=== PATIENT | female | born 1995 | race American Indian/Alaskan Native ===

== ENCOUNTER 2016-05-30 21:51 | Outpatient (CLI) | payer MEDICAID ==
[2016-05-30] MEDS ORDERED: LACTATED RINGERS 1,000 ML IV ONE (21:57)
[2016-05-30 22:20] VITALS: BP 113/59
== END 2016-05-31 00:56 | disposition home or self-care (01) ==
LOC: TRG 21:51
PROVIDERS: ATTEND Obstetrics & Gynecology
DX: Z34.90 Encounter for supervision of normal pregnancy, unspecified, unspecified trimester (principal); Z3A.00 Weeks of gestation of pregnancy not specified
CPT/HCPCS: 59025; J7120

== ENCOUNTER 2016-08-13 21:45 | Outpatient (CLI) | payer MEDICAID ==
[2016-08-13 21:54] VITALS: BP 120/65
== END 2016-08-13 23:20 | disposition home or self-care (01) ==
LOC: TRG 21:45
PROVIDERS: ATTEND Obstetrics & Gynecology
DX: O26.893 Other specified pregnancy related conditions, third trimester (principal); R06.89 Other abnormalities of breathing; R07.9 Chest pain, unspecified; Z3A.32 32 weeks gestation of pregnancy
CPT/HCPCS: 59025

== ENCOUNTER 2016-08-23 14:25 | Outpatient (CLI) | payer MEDICAID ==
[2016-08-23] MEDS ORDERED: LACTATED RINGERS 500 ML IV ONE ×2 (14:42→16:00)
[2016-08-23 15:44] LABS: Bilirubin,Urine NEG (Negative); Blood,Urine NEG (Negative); Ketones,Urine NEG (Negative); Leukocyte Esterase,Urine NEG (Negative); Mucus,Urine FEW /HPF; Nitrite,Urine NEG (Negative); Protein,Urine <15 mg/dL mg/dL (Negative); RBC,Urine < 1.0 /HPF (0.0-6.0); Urobilinogen,Urine < 2.0 mg/dL (<2.0)
[2016-08-23 16:29] VITALS: BP 106/63
== END 2016-08-23 16:59 | disposition home or self-care (01) ==
LOC: TRG 14:25
PROVIDERS: ATTEND Obstetrics & Gynecology
DX: Z34.93 Encounter for supervision of normal pregnancy, unspecified, third trimester (principal); Z3A.33 33 weeks gestation of pregnancy
CPT/HCPCS: 59025; 81001; 96361; J7120

== ENCOUNTER 2016-09-25 07:22 | Inpatient (IN) | payer MEDICAID ==
[2016-09-25] MEDS ORDERED: BRETHINE SUB-Q PRN (07:52)
[2016-09-25] MEDS ORDERED: XYLOCAINE 2% INFILTRATI ONE (07:52)
[2016-09-25] MEDS ORDERED: MINERAL OIL PO PRN (07:52)
[2016-09-25] MEDS ORDERED: ePHEDrine SULFATE IV PRN (07:52)
[2016-09-25] MEDS ORDERED: STADOL IV PRN (07:52)
[2016-09-25] MEDS ORDERED: BRETHINE IVP PRN (07:52)
[2016-09-25] MEDS ORDERED: SUBLIMAZE IV PRN (07:52)
[2016-09-25] MEDS ORDERED: ZOFRAN IV PRN (07:52)
[2016-09-25] MEDS ORDERED: NARCAN 0.4 MG/1 ML IV PRN (07:52)
[2016-09-25] MEDS ORDERED: LACTATED RINGERS 1,000 ML IV SCH (08:00)
[2016-09-25] MEDS ORDERED: PITOCin/NS 20 UNIT/1000ML DRIP 20 UNITS/1,000 ML BAG IV SCH (08:00)
[2016-09-25] MEDS ORDERED: PITOCin/NS 30 UNIT/500ML 30 UNITS/500 ML BAG IV SCH (08:00)
[2016-09-25] MEDS ORDERED: CLEOCIN 900 MG/50 mL 900 MG/50 ML BAG IV SCH (08:00)
[2016-09-25 08:38] LABS: Hematocrit 34.5 % (30.3-42.9); Hemoglobin 11.2 gm/dl (10.1-14.3); Mean Corpuscular HGB Conc 33 % (30-34); Mean Corpuscular Hemoglobin 28 pg (28-32); Mean Corpuscular Volume 86 fl (79-97); Platelet Count 147 K/mm3 (140-440); Red Blood Count 4.02 M/mm3 (3.65-5.03); Red Cell Distribution Width 14.2 % (13.2-15.2); White Blood Count 10.5 K/mm3 (4.5-11.0)
--- NOTE | 2016-09-25 10:44 | History and Physical Report ---
History of Present Illness Date of examination: 09/25/16 Date of admission: 09/25/16 07:23 Chief complaint: labor History of present illness: 21 yo LMP EDC 10/09/16 @ 38 weeks gestation, presented to triage 6cm. First trimester entry into care at 8 weeks. course complicated by anemia with iron BID. She is GBS negative. Past History Past Medical History: no pertinent history Past Surgical History: no surgical history [employer]ATOR History: chlamydia Family/Genetic History: diabetes, hypertension Social history: no significant social history, - Obstetrical History Expected Date of Delivery: 10/09/16 Actual Gestation: 38 Week(s) 0 Day(s) : 2 Para: 1 Hx # Term Pregnancies: 1 Number of Living Children: 1 Medications and Allergies Allergies Allergy/AdvReac Type Severity Reaction Status Date / Time Penicillins AdvReac Severe Swelling Verified 09/25/16 07:53 Home Medications Medication Instructions Recorded Confirmed Last Taken Type Vitamin 1 tab PO DAILY 04/21/16 09/25/16 09/24/16 09:00 History 1 Ferrous Sulfate [Ferrous Sulfate] 1 tab PO DAILY 09/25/16 09/25/16 09/04/16 09: 00 History 1 Active Meds: Active Medications Acetaminophen (Tylenol) 1,000 mg PO Q6H PRN PRN Reason: Pain, Mild (1-3) Butorphanol Tartrate (Stadol) 2 mg IV Q2H PRN PRN Reason: Pain , Severe (7-10) Fentanyl (Sublimaze) 100 mcg IV Q2H PRN PRN Reason: Labor Pain Clindamycin HCl (Cleocin 900 Mg/50 Ml) 900 mg in 50 mls @ 100 mls/hr IV Q8HR ANTONINO PRN Reason: Protocol Lactated Ringer's (Lactated Ringers) 1,000 mls @ 125 mls/hr IV DIRECT ANTONINO Oxytocin/Sodium Chloride (Pitocin/Ns 20 Unit/1000ml Drip) 20 units in 1,000 mls @ 125 mls/hr IV DIRECT ANTONINO Oxytocin/Sodium Chloride (Pitocin/Ns 30 Unit/500ml) 30 units in 500 mls @ 4 mls /hr IV TITR ANTONINO PRN Reason: Protocol Mineral Oil (Mineral Oil) 30 ml PO QHS PRN PRN Reason: Constipation Naloxone HCl (Narcan 0.4 Mg/1 Ml) 0.1 mg IV Q2MIN PRN PRN Reason: Res Rate </= 8 or 02 SAT < 92% Ondansetron HCl (Zofran) 4 mg IV Q8H PRN PRN Reason: Nausea And Vomiting Review of Systems All systems: negative - Vital Signs Vital signs: Vital Signs Pulse Pulse Ox 87 88 09/25/16 07:43 09/25/16 07:43 Temp Pulse Resp BP Pulse Ox 98.8 F 91 H 20 106/57 99 09/25/16 07:56 09/25/16 09:04 09/25/16 07:56 09/25/16 09:04 09/25/16 07:58 - Physical Exam Breasts: Positive: deferred Lungs: Positive: Normal air movement Abdomen: Positive: normal appearance - Obstetrical FHR: category 1 Uterine Contraction Monitor Mode: External Results Result Diagrams: 09/25/16 08:15 All other labs normal. Assessment and Plan A: IUP @ 38 weeks active labor P: Expectant [place]
[2016-09-25] MEDS ORDERED: TYLENOL PO PRN (11:00)
--- NOTE | 2016-09-25 11:27 | Procedure Note ---
OB Delivery Note - Delivery Date of Delivery: 09/25/16 (6-14oz male @ 1107) Surgeon: SHARONDA NEGRON Estimated blood loss: 100cc - Vaginal Delivery presentation: vertex Delivery position: OA Intrapartum events: none Delivery induction: none Delivery monitor: external FHT, external uterine Route of delivery: Delivery placenta: spontaneous Delivery cord: 3 umbilical vessels Episiotomy: none Delivery laceration: none Anesthesia: epidural - Infant A at 1 minute: 8 at 5 minutes: 9 Gender: Male
[2016-09-25] MEDS ORDERED: DULCOLAX PR PRN (11:29)
[2016-09-25] MEDS ORDERED: DERMOPLAST TP PRN (11:29)
[2016-09-25] MEDS ORDERED: LANSINOH TP PRN (11:29)
[2016-09-25] MEDS ORDERED: PHENERGAN PR PRN (11:29)
[2016-09-25] MEDS ORDERED: MILK OF MAGNESIA PO PRN (11:29)
[2016-09-25] MEDS ORDERED: NORCO 5/325 PO PRN (11:29)
[2016-09-25] MEDS ORDERED: TUCKS PAD TP PRN (11:29)
[2016-09-25] MEDS ORDERED: BENADRYL PO PRN (11:29)
[2016-09-25] MEDS ORDERED: SODIUM CHLORIDE FLUSH SYRINGE 10 ML IV NR (12:00)
[2016-09-25] MEDS: MOTRIN PO SCH (17:30)
[2016-09-26 00:04] LABS: Hematocrit 30.6 % (30.3-42.9)
--- NOTE | 2016-09-26 07:48 | Progress Note ---
Assessment and Plan A/P s/p doing well no complaints, bleeding decreasing H/H 11.2/34.5---10/30.6 0+ no rhogam indicated bonding well with baby male pain controlled with oral meds urinating well without assistance ambulating tolerating diet undecided control instructed to call clinic for desired circumcision continue routine PP management Subjective - Subjective Date of service: 09/26/16 Principal diagnosis: Patient reports: appetite normal, voiding normally, pain well controlled, flatus , ambulating normally : doing well, nursing well Objective - Vital Signs Latest vital signs: Vital Signs Temp Pulse Pulse Resp BP BP Pulse Ox 09/26/16 00:00 98.6 F 77 16 101/72 09/25/16 20:00 98.6 F 68 16 111/69 09/25/16 19:40 98.6 F 77 16 111/69 09/25/16 16:30 98.0 F 65 16 118/68 09/25/16 13:15 98 F 63 18 112/66 09/25/16 12:50 62 18 108/68 09/25/16 12:48 62 108/68 09/25/16 12:33 65 102/56 09/25/16 12:32 68 20 115/75 09/25/16 12:18 68 115/75 09/25/16 12:05 75 20 107/66 09/25/16 12:03 75 107/66 09/25/16 11:50 73 20 108/61 09/25/16 11:48 73 108/61 09/25/16 11:35 82 20 116/70 09/25/16 11:33 82 116/70 09/25/16 11:20 97.3 F L 75 20 124/64 09/25/16 11:18 75 124/64 09/25/16 09:04 91 H 106/57 09/25/16 07:58 100 H 99 09/25/16 07:56 98.8 F 20 09/25/16 07:53 83 89 09/25/16 07:50 78 97 09/25/16 07:48 83 93 Intake and Output 09/25/16 09/26/16 09/26/16 22:59 06:59 14:59 Intake Total 700 500 Balance 700 500 Intake: Oral 300 Intake, Free Water 400 500 Other: Total, Intake Amount 300 - Exam Breasts: Present: normal Cardiovascular: Present: Regular rate, Normal S1, Normal S2 Lungs: Present: Clear to auscultation, Normal air movement Abdomen: Present: normal appearance, soft, normal bowel sounds. Absent: distention Vulva: both: normal Uterus: Present: normal, firm, fundal height below umbilicus (3cm below). Absent: bogginess, tenderness Extremities: Present: normal Deep Tendon Reflex Grade: Normal +2 - Labs Labs: Abnormal lab results 09/25/16 Range/Units 23:41 Hgb 10.0 L (10.1-14.3) gm/dl
[2016-09-26] MEDS: PRENATAL VITAMIN PO SCH (10:00)
[2016-09-26] MEDS ORDERED: M-M-R II VACCINE SUB-Q ONE (11:29)
[2016-09-26] MEDS: MOTRIN PO SCH (14:10)
[2016-09-27] MEDS: MOTRIN PO SCH ×2 (00:12→06:08)
--- NOTE | 2016-09-27 11:00 | Progress Note ---
Assessment and Plan O: VSS AF PP H/H: 10.0/30.6 A: Stable PP Day 2 Anemia P: Iron BID Discharge home Subjective - Subjective Date of service: 09/27/16 Principal diagnosis: Interval history: 21 yo LMP EDC 10/09/16 @ 38 weeks gestation, presented to triage 6cm. First trimester entry into care at 8 weeks. course complicated by anemia with iron BID. She is GBS negative. Patient reports: appetite normal, voiding normally, pain well controlled, ambulating normally [place]: doing well, nursing well Objective - Vital Signs Latest vital signs: Vital Signs Temp Pulse Pulse Resp BP 09/27/16 08:58 97.9 F 64 18 96/52 09/27/16 00:00 98.6 F 67 16 101/72 09/26/16 17:00 98.2 F 67 18 106/72 Intake and Output 09/26/16 09/27/16 09/27/16 22:59 06:59 14:59 Intake Total 820 240 Balance 820 240 Intake: Oral 420 240 Intake, Free Water 400 Other: Total, Intake Amount 300 240 # Voids Void 1 1 - Exam Breasts: Present: normal Lungs: Present: Normal air movement Abdomen: Present: normal appearance, soft. Absent: distention, tenderness Vulva: both: normal Uterus: Present: normal, firm, fundal height below umbilicus. Absent: bogginess , tenderness Extremities: Present: normal
--- NOTE | 2016-09-27 11:02 | Discharge Summary ---
Providers - Providers Date of Admission: 09/25/16 07:23 Date of discharge: 09/27/16 Attending physician: ARTEM POZO Primary care physician: ARTEM POZO Hospitalization Reason for admission: active labor, IUP at term Delivery: Episiotomy: none Laceration: none Other procedures: none baby: male Condition at discharge: Good Disposition: DISCHARGED TO HOME OR SELFCARE Plan - Discharge Medications Prescriptions: Ferrous Sulfate [Feosol 325 MG tab] 325 mg PO QDAY #30 tablet Ibuprofen [Motrin] 600 mg PO Q8H PRN #30 tablet PRN Reason: Pain oxyCODONE /ACETAMINOPHEN [Percocet 5/325] 1 tab PO Q6HR PRN #30 tablet PRN Reason: Pain - Provider Discharge Summary Activity: routine, no sex for 6 weeks, no heavy lifting 4 weeks, no strenuous exercise Diet: routine Additional instructions: [] Smoking cessation referral if applicable(refer to patient education folder for contact #) [] Refer to [facility] Booklet Call your doctor immediately for: * Fever > 100.5 * Heavy vaginal bleeding ( >1 pad per hour) * Severe persistent headache * Shortness of breath * Reddened, hot, painful area to leg or breast * Drainage or odor from incision. * Keep incision clean and dry at all times and follow doctor's instructions regarding bathing/showering - Follow up plan Follow up: ARTEM POZO MD [Primary Care Provider] - SHARONDA NEGRON CNM [Advanced Practice Nurse] - (RTO 4 weeks . Call office to schedule infant circumcision)
[2016-09-27] MEDS: PRENATAL VITAMIN PO SCH (12:54)
[2016-09-27 13:55] VITALS: BP 96/62
== END 2016-09-27 13:20 | disposition home or self-care (01) | DRG 775 ==
LOC: TRG 07:22 → LD 07:23 → TRG 07:23 → OB 13:32
PROVIDERS: ADMIT Obstetrics & Gynecology; ATTEND Obstetrics & Gynecology
PROC: 10E0XZZ Delivery of Products of Conception, External Approach (ICD-10-PCS; principal; 2016-09-25)
PROC: 00HU33Z Insertion of Infusion Device into Spinal Canal, Percutaneous Approach (ICD-10-PCS; 2016-09-25)
PROC: 3E0R3CZ (ICD-10-PCS; 2016-09-25)
DX: O99.02 Anemia complicating childbirth (principal); D64.9 Anemia, unspecified; Z3A.38 38 weeks gestation of pregnancy; Z37.0 Single live birth; Z88.0 Allergy status to penicillin
CPT/HCPCS: 36415; 59025; 85014; 85018; 85027; 86850; 86900; 86901; 99211; G0463; J2590; J7120